=== PATIENT | female | born 1935 | race Caucasian/White ===

== ENCOUNTER → 2021-10-28 17:37 | Outpatient (CLI) | payer MEDICARE, MEDICAID, SELFPAY ==
[2021-10-28 18:26] LABS: Basophils % 0.4 % (0.1-2.0); Eosinophils # 0.2 K/mm3 (0.0-0.4); Eosinophils % 1.5 % (0.1-12.0); Hematocrit 27.1 % (37.0-47.0); Hemoglobin 8.2 g/dL (12.2-16.2); Lymphocytes # 0.7 K/mm3 (0.7-4.5); Lymphocytes % 6.8 % (10-50); Mean Corpuscular HGB Conc 30.3 g/dL (31.8-35.4); Mean Corpuscular Hemoglobin 32.5 pg (27.0-31.2); Mean Corpuscular Volume 107.1 fl (81-99); Mean Platelet Volume 9.8 fl (7.4-10.4); Monocytes # 0.9 K/mm3 (0.1-1.0); Monocytes % 8.2 % (1.7-9.3); Neutrophils # 9.1 K/mm3 (1.8-7.8); Neutrophils % 83.1 % (37.0-80.0); Platelet Count 228 K/mm3 (142-424); Red Blood Count 2.53 M/mm3 (4.20-5.40); Red Cell Distribution Width 16.7 % (11.5-17.5); White Blood Count 10.9 K/mm3 (4.8-10.8)
== END ==
PROVIDERS: Visit Provider Nurse Practitioner Family
DX: D64.9 Anemia, unspecified (principal)
CPT/HCPCS: 85025

== ENCOUNTER 2021-10-31 21:31 | Inpatient (IN) | payer MEDICARE, MEDICAID, SELFPAY ==
[2021-10-31 21:31] VITALS: BP 134/79; PULSE 78; RESP 16; TEMP 36.9; O2SAT 96; BMI 35.2
[2021-10-31 21:49] VITALS: BMI 35.2
--- NOTE | 2021-10-31 21:49 | XR_ITS ---
PROCEDURE INFORMATION: Exam: XR Chest Exam date and time: 10/31/2021 9:49 PM Age: 86 years old Clinical indication: Shortness of breath and other: Covid; Additional info: Covid SOB TECHNIQUE: Imaging protocol: XR of the chest. Views: 1 view. COMPARISON: CR AAS XR acute abdomen series 11/06/2018 10:10 AM FINDINGS: Lungs: Diffuse patchy airspace opacities noted throughout the lungs bilaterally. Commonly reported imaging features of COVID-19 pneumonia are present. Pleural spaces: There is no evidence of pneumothorax. There are no pleural effusions present. Heart/Mediastinum: Heart demonstrates mild diffuse enlargement. Vasculature: The vasculature demonstrates diffuse moderate atherosclerotic calcification. Diaphragm: There is nonspecific elevation of the right hemidiaphragm. Bones/joints: The thoracic spine demonstrates mild degenerative changes at multiple levels. IMPRESSION: 1. Diffuse patchy airspace opacities noted throughout the lungs bilaterally. 2. Commonly reported imaging features of COVID-19 pneumonia are present. Other processes such as influenza pneumonia and organizing pneumonia, as can be seen with drug toxicity and connective tissue disease, can cause a similar imaging pattern. (Reference: Az) 3. Mild cardiomegaly. REFERENCES: Az Montano et al., Radiological Society of [place] Expert Consensus Statement on Reporting Chest CT Findings Related to COVID-19. Endorsed by the Society of Thoracic Radiology, the [place] [employer] [place] [employer], and RSNA. Published December 27, 2019.
[2021-10-31 22:01] VITALS: BP 149/58; PULSE 74; O2SAT 94
[2021-10-31 22:27] LABS: Basophils # 0.1 K/mm3 (0-0.2); Eosinophils % 0.6 % (0.1-12.0); Hematocrit 29.8 % (37.0-47.0); Lymphocytes # 0.9 K/mm3 (0.7-4.5); Lymphocytes % 12.4 % (10-50); Mean Corpuscular HGB Conc 30.1 g/dL (31.8-35.4); Mean Corpuscular Hemoglobin 31.9 pg (27.0-31.2); Mean Corpuscular Volume 105.8 fl (81-99); Mean Platelet Volume 9.1 fl (7.4-10.4); Monocytes # 0.4 K/mm3 (0.1-1.0); Monocytes % 4.9 % (1.7-9.3); Neutrophils % 81.1 % (37.0-80.0); Platelet Count 184 K/mm3 (142-424); Red Blood Count 2.81 M/mm3 (4.20-5.40); Red Cell Distribution Width 16.7 % (11.5-17.5); White Blood Count 7.4 K/mm3 (4.8-10.8)
[2021-10-31 22:36] VITALS: BP 141/53; PULSE 72; O2SAT 93
[2021-10-31 22:39] LABS: Alanine Aminotransferase 40 U/L (12-78); Alkaline Phosphatase 90 U/L (38-126); Anion Gap 9.5 mEq/L (5-15); Aspartate Amino Transferase 72 U/L (14-36); Bilirubin,Total 0.6 mg/dl (0.2-1.3); Blood Urea Nitrogen 43 mg/dl (7-17); Carbon Dioxide 30 mmol/L (22.0-30.0); Chloride 104 mmol/L (98-107); Creatinine Clearance Estimated 42 mL/min (50-200); Estimated Glomerular Filt Rate 39 ml/min (>60); GFR (African American) 47 ML/MIN (>60); Globulin 2.9 g/dL (1.3-3.2); Glucose 117 mg/dl (74-100); Potassium 3.5 mmoL/L (3.5-5.1); Sodium 140 mmol/L (136-145); Total Protein,Serum 5.9 g/dl (6.3-8.2)
--- NOTE | 2021-10-31 22:43 | ECG_ITS ---
APPROVED REPORT Exam: Resting ECG HR:77 bpm ECG Measurements Heart Rate 77 AXES NV 244 P 79 QRSd 103 QRS 19 QT 382 T 136 QTc 414 Conclusion SINUS RHYTHM WITH FIRST DEGREE AV BLOCK LOW QRS VOLTAGE IN EXTREMITY LEADS [QRS DEFLECTION < 0.5 mV IN LIMB LEADS] POSSIBLE ANTERIOR MYOCARDIAL INFARCTION , PROBABLY OLD [30 ms Q WAVE IN V3/V4, OR R < 0.2 mV IN V4] ABNORMAL ECG UNCONFIRMED REPORT Electronically signed by : Donavon Herring MD 11/03/2021 17:29:54
[2021-10-31 22:44] LABS: C-Reactive Protein 90.9 mg/L (0-4)
[2021-10-31 22:49] LABS: Erythrocyte Sedimentation Rate > 140 mm/hr (0-30)
[2021-10-31 22:53] LABS: Troponin I 0.17 ng/ml (0.00-0.034)
[2021-10-31 22:58] LABS: Procalcitonin 0.128 ng/mL (0.0-2.0)
[2021-10-31 23:00] VITALS: BP 147/59; PULSE 68; RESP 22; O2SAT 95
--- NOTE | 2021-10-31 23:16 | HMH.EDSOB ---
ED Disposition Clinical Impression: Non-ST elevated myocardial infarction (non-STEMI), COVID-19, Obesity (BMI 30-39.9), Renal insufficiency Congestive cardiac failure Qualifiers: Heart failure type: unspecified Heart failure chronicity: acute on chronic Qualified Code(s): I50.9 - Heart failure, unspecified Anemia Qualifiers: Anemia type: unspecified type Qualified Code(s): D64.9 - Anemia, unspecified Disposition: Admitted As Inpatient Condition on Discharge: Fair Referrals: Provider,Referral, [Referring] - - Critical Care Critical Care Time: No Attestation: On 10/31/21, the high probability of a clinically significant, sudden or life threatening deterioration of the following system(s) required my full and direct attention, intervention and personal management. The time I documented below is in addition to time spent performing reported procedures but includes the following listed in this critical care notation. Medical Decision Making - Medical Records Medical records reviewed: Yes: I reviewed the patient's medical records. - Nate Inquiry Pt receiving controlled substance: No Vital Signs: 10/31/21 21:31 Temperature 98.4 F Temperature Source Oral Pulse Rate [Left] 78 Respiratory Rate 16 Blood Pressure [Right Arm] 134/79 Blood Pressure Mean [Right Arm] 97 02 Sat by Pulse Oximetry 96 Oxygen Delivery Method Simple Mask - Lab Data Lab results reviewed: Yes: I reviewed the patient's lab results. Lab Results 10/31/21 22:15: WBC 7.4, RBC 2.81 L, Hgb 9.0 L, Hct 29.8 L, MCV 105.8 H, MCH 31.9 H, MCHC 30.1 L, RDW 16.7, Plt Count 184, MPV 9.1, Neut % (Auto) 81.1 H, Lymph % (Auto) 12.4, [place] % (Auto) 4.9, Eos % (Auto) 0.6, Baso % (Auto) 1.0, Neut # (Auto) 6.0, Lymph # (Auto) 0.9, [place] # (Auto) 0.4, Eos # (Auto) 0.0, Baso # (Auto) 0.1, ESR > 140 H 10/31/21 22:15: Sodium 140, Potassium 3.5, Chloride 104, Carbon Dioxide 30, Anion Gap 9.5, BUN 43 H, Creatinine 1.30 H, Estimated Creat Clear 42, Estimated GFR 39 L, Est GFR ( Amer) 47 L, Glucose 117 H, Calcium 8.0 L, Total Bilirubin 0.6, AST 72 H, ALT 40, Alkaline Phosphatase 90, Troponin I 0.17 H, C-Reactive Protein 90.9 H, Total Protein 5.9 L, Albumin 3.0 L, Globulin 2.9, Albumin/Globulin Ratio 1.0 L, Procalcitonin 0.128 10/31/21 22:15: NT-Pro-B Natriuret Pep 7200 H 10/31/21 23:20: Specimen Source Left radial, O2 % 3lpm, ABG pH 7.40, ABG pCO2 39.2, ABG pO2 52.9 L, ABG HCO3 23.8, ABG Total CO2 25.0, ABG O2 Saturation 85 L*, ABG Base Excess -1.0, Barry Test Patient unable 11/01/21 00:11: Urine Color Yellow, Urine Appearance Clear, Urine pH 5.5, Ur Specific [place] 1.020, Urine Protein 1+, Urine Glucose (UA) Negative, Urine Ketones Negative, Urine Blood Trace-l, Urine Nitrate Negative, Urine Bilirubin Negative, Urine Urobilinogen 0.2, Ur Leukocyte Esterase Negative, Urine RBC Occasional, Urine WBC 5-10, Ur Squamous Epith Cells Occasional, Urine Bacteria Trace, Urine Yeast 3+ 11/01/21 01:08: Troponin I 0.16 H Result diagrams: 10/31/21 22:15 10/31/21 22:15 Orders (Tests/Meds): ED MEDICATIONS Generic Name Dose Route Start Last Admin Trade Name Freq PRN Reason Stop Dose Admin Sodium Chloride 1,000 mls @ 999 mls/hr 10/31/21 22:45 10/31/21 22:58 Sod Chlor 0.9% 1000ml Bag IV 10/31/21 23:45 999 mls/hr .Q1H1M SAMUEL Administration Discontinued Medications Generic Name Dose Route Start Last Admin Trade Name Freq PRN Reason Stop Dose Admin Dexamethasone Sodium Phosphate 10 mg 10/31/21 22:38 10/31/21 22:57 Dexamethasone 4mg/Ml 5ml Mdv IV 10/31/21 22:39 10 mg ONCE ONE Administration Furosemide 40 mg 11/01/21 00:16 11/01/21 00:17 Furosemide 40mg/4ml Vial IV 11/01/21 00:17 40 mg ONCE ONE Administration ORDERS Category Date Time Status Troponin I Q3H Lab 11/01/21 04:00 Ordered - Radiology Data #1 Image(s): Chest Image Reviewed: Yes I have reviewed radiologist's interpretation Preliminary Findings: Abnormal -
[2021-10-31 23:24] LABS: NT Pro Brain Natriuretic Pep. 7200 pg/mL (0-450)
[2021-10-31 23:31] VITALS: BP 140/58; PULSE 70; RESP 22; O2SAT 94
[2021-10-31 23:37] LABS: ABG HCO3 23.8 mmhg (22.0-26.0); ABG Oxygen Saturation 85 % (90-100); ABG PCO2 39.2 mmhg (35.0-45.0); ABG PO2 52.9 mmhg (80-100)
[2021-10-31 23:40] LABS: Allen's Test Patient Unable; Oxygen 3LPM %; Source Left Radial
[2021-11-01] VITALS (14 sets, daily range): BP systolic 121–147; BP diastolic 51–71; PULSE 55–86; RESP 16–24; TEMP 36.3–37.1; O2SAT 92–96; BMI 33.0
[2021-11-01 00:20] LABS: Microscopic, Urine URINE MICROSCOPIC (MICROSCOPIC)
[2021-11-01 00:22] LABS: Appearance,Urine CLEAR (Clear); Bilirubin,Urine Negative (Negative); Blood, Urine TRACE-L (Negative); Color,Urine YELLOW (Yellow); Glucose,Urine (UA) Negative (Negative); Ketones,Urine Negative (Negative); Leukocyte Esterase,Urine Negative (Negative); Nitrate,Urine Negative (Negative); PH,Urine 5.5 (5.0-8.5); Protein,Urine 1+ (Negative); Urobilinogen,Urine 0.2 EU/dl (0.2)
[2021-11-01 00:29] LABS: RBC,Urine Occasional #/hpf (0-3)
[2021-11-01 00:30] LABS: Bacteria,Urine Trace /lpf; Squamous Epithelial Cell,Urine Occasional #/hpf (0-5); Yeast,Urine 3+ /lpf
[2021-11-01 01:34] LABS: Troponin I 0.16 ng/ml (0.00-0.034)
--- NOTE | 2021-11-01 01:53 | PC.NURSE ---
kevin from [facility] called to check pt status. informed her of status.
--- NOTE | 2021-11-01 02:01 | PC.NURSE ---
paged dr euceda @ this time
--- NOTE | 2021-11-01 02:07 | PC.NURSE ---
shailesh on phone with Dr euceda @ this time
--- NOTE | 2021-11-01 02:25 | PC.NURSE ---
Spoke to Clifton PUENTES @ [facility] to notified that pt is going to be admitted
[2021-11-01 02:46] LABS: Coronavirus 19, PCR Detected (NotDetected); Influenza A, PCR Not Detected (NotDetected); Influenza B, PCR Not Detected (NotDetected)
--- NOTE | 2021-11-01 03:14 | PC.NURSE ---
patient up to floor via stretcher @this time.
[2021-11-01 04:29] LABS: Basophils % 0.7 % (0.1-2.0); Eosinophils % 0.6 % (0.1-12.0); Hemoglobin 8.3 g/dL (12.2-16.2); Lymphocytes # 0.4 K/mm3 (0.7-4.5); Lymphocytes % 6.9 % (10-50); Mean Corpuscular HGB Conc 30.6 g/dL (31.8-35.4); Mean Corpuscular Hemoglobin 32.2 pg (27.0-31.2); Mean Corpuscular Volume 105.1 fl (81-99); Mean Platelet Volume 9.1 fl (7.4-10.4); Monocytes # 0.2 K/mm3 (0.1-1.0); Neutrophils # 5.6 K/mm3 (1.8-7.8); Neutrophils % 88.9 % (37.0-80.0); Platelet Count 150 K/mm3 (142-424); Red Blood Count 2.59 M/mm3 (4.20-5.40); Red Cell Distribution Width 16.8 % (11.5-17.5); White Blood Count 6.2 K/mm3 (4.8-10.8)
[2021-11-01 04:30] LABS: Hematocrit 27.2 % (37.0-47.0)
[2021-11-01 04:31] LABS: MANUAL DIFFERENTIAL MANUAL DIFFERENTIAL (MANUAL DIFF)
[2021-11-01 04:36] LABS: Chloride 108 mmol/L (98-107); Potassium 3.5 mmoL/L (3.5-5.1); Sodium 139 mmol/L (136-145)
[2021-11-01 04:39] LABS: Anion Gap 7.5 mEq/L (5-15); Blood Urea Nitrogen 41 mg/dl (7-17); Calcium 7.2 mg/dl (8.4-10.2); Carbon Dioxide 27 mmol/L (22.0-30.0); Estimated Glomerular Filt Rate 47 ml/min (>60); GFR (African American) 57 ML/MIN (>60); Glucose 114 mg/dl (74-100)
[2021-11-01 04:41] LABS: Eosinophils % 1 % (0-3); Lymphocytes % 8 % (10-50); Monocytes % 2 % (2-9); Neutrophils % 80 % (42-76); Total Cells Counted 100
[2021-11-01 04:42] LABS: Anisocytosis 1+; Hypochromasia 2+; Macrocytosis 2+; Platelet Estimate Normal; Rouleaux 2+
[2021-11-01 04:54] LABS: Creatinine Clearance Estimated 46 mL/min (50-200); Troponin I 0.15 ng/ml (0.00-0.034)
[2021-11-01 06:21] LABS: POC Glucose,Bedside 119 (70-110)
--- NOTE | 2021-11-01 09:54 | HMH.PHAINT ---
verified pt home meds with list from shelter
--- NOTE | 2021-11-01 10:22 | HMH.HP ---
*Admission Date: 11/01/21 *Chief complaint: Hypoxemia *History of present illness: Ms. Keen is an 86-year-old white female who was recently admitted to [facility] from [facility] for rehab following a stroke. She has a history of paroxysmal atrial fibrillation, hypertension, hyperlipidemia, type 2 diabetes mellitus, and atherosclerotic coronary vascular disease. Four days ago she was diagnosed with Covid at [facility] and had been doing fairly well with supplemental oxygen and conservative treatment until last evening when she was found to be more lethargic and hypoxemic. The staff at [facility] was having difficulty maintaining adequate O2 saturation and she was therefore transferred to the emergency room for further evaluation. In the emergency room, her chest x-ray showed diffuse bilateral infiltrates consistent with Covid pneumonia. Her white count was normal. She was also noted to have elevated troponins and subsequently admitted for further evaluation and treatment. Per [facility] documentation, she is known to be DNR status. [facility] History Medical History: Reports:: Atherosclerotic Heart Disease, Atrial Fibrillation (paroxysmal), Carotid Stenosis, Congestive Heart Failure (Diastolic heart failure), Diabetes Mellitus Type 2, Heart Murmur, Home Oxygen, Hyperlipidemia, Hypertension, Renal Insufficiency (Chronic) Denies:: Cancer, Diabetes Mellitus Type 1, Internal Pacemaker, Lung Disease, MRSA, Seizures *Have you ever received a pneumonia vaccine?: Yes *Have you received a flu vaccine this season?: Yes Other Medical History: Reports: Anemia, Arthritis, Hypothyroidism, Other (Presbycusis, blind in right eye) Other Surgeries: Yes: Cardiac Catheterization, Coronary Stent (Multiple), Other (Hysterectomy). No: Pacemaker Amputation: No - *Social History Smoking Status: Never smoker Alcohol Intake: never Substance Use Type: denies use *Occupational Status:: retired Housing: group home *Travel in the last 8 weeks: None Family Hx:: Unable to obtain Review of Systems - Review of Systems Review of systems:: unable to obtain (She is lethargic and quite hard of hearing) - *Neurologic Denies seizure-like activity Meds Home Medications Medication Instructions Recorded Confirmed Type Insulin Detemir [Levemir 20 unit SQ HS 11/06/18 11/01/21 History 100units/mL 3mL flexpen] Levothyroxine Sodium 100 mcg PO DAILY 11/06/18 11/01/21 History [Levothyroxine 100mcg (0.1MG) Tab] Omeprazole [Omeprazole 20mg 20 mg PO DAILY 11/06/18 11/01/21 History Capsule] PARoxetine HCL [Paxil] 10 mg PO DAILY 11/06/18 11/01/21 History Sucralfate [Sucralfate 1gm 1 gm PO ACHS 11/06/18 11/01/21 History Tab] Apixaban [Eliquis] 2.5 mg PO BID 05/29/19 11/01/21 History Acetaminophen [Acetaminophen 325mg 325 mg PO Q4-6H PRN 11/01/21 11/01/21 History tab] Albuterol Sulfate [Proair Hfa] 2 puffs IH Q4HP PRN 11/01/21 11/01/21 History Amlodipine Besylate [Amlodipine 10 mg PO DAILY 11/01/21 11/01/21 History 10mg Tab] Ascorbic Acid/Ascorbate Sodium 500 mg PO DAILY 11/01/21 11/01/21 History [Vitamin C 500 mg Tablet Chew] Aspirin [Aspirin 81mg chewable 81 mg PO DAILY 11/01/21 11/01/21 History tab] Atorvastatin Calcium [Lipitor 80mg 80 mg PO DAILY 11/01/21 11/01/21 History Tab] Bumetanide 1 mg PO BID 11/01/21 11/01/21 History Cholecalciferol (Vitamin D3) 25 mcg PO DAILY 11/01/21 11/01/21 History [Vitamin D3] Famotidine [Pepcid 20mg Tablet] 20 mg PO DAILY 11/01/21 11/01/21 History Ferrous Sulfate 325 mg PO BID 11/01/21 11/01/21 History Insulin Lispro [Humalog Kwikpen 0 units SQ TID 11/01/21 11/01/21 History U-100] Ipratropium/Albuterol Sulfate 1 puff IH QID 11/01/21 11/01/21 History [Combivent Respimat Inh] Isosorbide Mononitrate [Imdur 60mg 60 mg PO DAILY 11/01/21 11/01/21 History ER tablet] Nystatin [Nystatin Cr 100,000 1 applicatio TOPICAL BID 11/01/21 11/01/21 History Units/GM
--- NOTE | 2021-11-01 14:31 | HMH.PHAVTE ---
[facility] Pharmacy VTE Monitoring - Patient Demographics Admission date: 11/01/21 Report Date: 11/01/21 Time: 14:31 Allergies/Adverse Reactions: Patient Allergies promethazine [From Phenergan] Allergy (Verified 11/06/18 09:50) Height: 1.52 m Weight: 76.249 kg Patient Problems: Current Active Problems Congestive cardiac failure (Acute) Anemia (Acute) Non-ST elevated myocardial infarction (non-STEMI) (Acute) COVID-19 (Acute) Obesity (BMI 30-39.9) (Acute) Renal insufficiency (Acute) Pneumonia due to COVID-19 virus (Acute) Recent cerebrovascular accident (CVA) (Acute) Presbycusis (Acute) Hypothyroid (Acute) Hypertension (Acute) Type 2 diabetes mellitus (Acute) DNR (do not resuscitate) (Acute) - VTE Risk Labs: VTE Related Lab Results Hgb 8.3 g/dL (12.2-16.2) L 11/01/21 04:20 Hct 27.2 % (37.0-47.0) L 11/01/21 04:20 Plt Count 150 K/mm3 (142-424) 11/01/21 04:20 BUN 41 mg/dl (7-17) H 11/01/21 04:20 Creatinine 1.10 mg/dl (0.52-1.04) H 11/01/21 04:20 Estimated Creat Clear 46 mL/min (50-200) 11/01/21 04:20 VTE Score: 7 VTE Risk Level: Moderate Risk - Prophylaxis Types of VTE Prophylaxis: TEDS Knee High, Pharmacological Location of Applied Device: Bilateral Lower Extremeties Pharmacologic Type: Other (ELIQUIS AND DARON HOSE ORDERED)
[2021-11-01 20:20] LABS: POC Glucose,Bedside 187 (70-110)
[2021-11-01 21:31] LABS: POC Glucose,Bedside 112 (70-110)
[2021-11-01 21:32] LABS: POC Glucose,Bedside 279 (70-110)
[2021-11-02] VITALS (16 sets, daily range): BP systolic 118–137; BP diastolic 47–92; PULSE 52–78; RESP 20–24; TEMP 36.1–36.6; O2SAT 86–99; BMI 34.4
--- NOTE | 2021-11-02 05:25 | PC.NURSE ---
Addendum entered by Nessa Wang RN 11/02/21 05:33: temp 96.9 - warm blankets applied, temperature in room increased. Will recheck. Original Note: Pt is still lethargic, awakens at times spontaneously or to voice (very SQUAXIN). Oriented to self. Pt did c/o of soreness in both legs. Pt repositioned and medicated per DEC. After repositioning and medication pt has rested better. Pt started out this shift on 3 L NC, but would stay at 88-89%. Pt does mouth breath at times, O2 titrated to 4 L NC. Pt has been greater than 90% since. EKG obtained during my shift because RN watching tele said it looked like her rhythm was different from earlier. EKG read by ER MD - no acute ischemic changes per Dr. Menendez. Turning q2hrs, voiding per sanchez cath. Sanchez patent, draining yellow urine. IV infusing per order. Call light in reach.
[2021-11-02 06:11] LABS: Basophils % 0.3 % (0.1-2.0); Hemoglobin 8.2 g/dL (12.2-16.2); Lymphocytes # 0.8 K/mm3 (0.7-4.5); Lymphocytes % 10.1 % (10-50); Mean Corpuscular HGB Conc 32.2 g/dL (31.8-35.4); Mean Corpuscular Hemoglobin 33.6 pg (27.0-31.2); Mean Corpuscular Volume 104.1 fl (81-99); Mean Platelet Volume 9.6 fl (7.4-10.4); Monocytes # 0.5 K/mm3 (0.1-1.0); Monocytes % 5.9 % (1.7-9.3); Neutrophils # 6.5 K/mm3 (1.8-7.8); Neutrophils % 83.7 % (37.0-80.0); Platelet Count 156 K/mm3 (142-424); Red Blood Count 2.43 M/mm3 (4.20-5.40); Red Cell Distribution Width 16.9 % (11.5-17.5); White Blood Count 7.7 K/mm3 (4.8-10.8)
[2021-11-02 06:12] LABS: Hematocrit 25.3 % (37.0-47.0)
--- NOTE | 2021-11-02 06:20 | PC.NURSE ---
Upon entering room, pt has audible wheezing. Pt was maintaining O2 sat of 93% on 4L, now hovering 89-90%. Dr. King paged. New orders received for lasix and xopenex tx.
[2021-11-02 06:32] LABS: Anion Gap 9.4 mEq/L (5-15); Blood Urea Nitrogen 47 mg/dl (7-17); Calcium 7.5 mg/dl (8.4-10.2); Carbon Dioxide 28 mmol/L (22.0-30.0); Chloride 109 mmol/L (98-107); Creatinine Clearance Estimated 40 mL/min (50-200); Estimated Glomerular Filt Rate 39 ml/min (>60); GFR (African American) 47 ML/MIN (>60); Glucose 84 mg/dl (74-100); Potassium 3.4 mmoL/L (3.5-5.1); Sodium 143 mmol/L (136-145)
[2021-11-02 06:54] LABS: POC Glucose,Bedside 103 (70-110)
--- NOTE | 2021-11-02 08:51 | XR_ITS ---
PROCEDURE INFORMATION: Exam: XR Chest Exam date and time: 11/02/2021 8:51 AM Age: 86 years old Clinical indication: Shortness of breath; Additional info: F/u pneumonia, covid TECHNIQUE: Imaging protocol: XR of the chest. Views: 1 view. COMPARISON: CR XR CHEST PORTABLE 10/31/2021 9:51 PM FINDINGS: Lungs: Patchy bibasilar airspace opacities, slightly worsened from 10/31/2021. Pleural spaces: Small bilateral pleural effusions, left greater than right, mildly increased in size. No pneumothorax. Heart/Mediastinum: Unremarkable. No cardiomegaly. Bones/joints: Unremarkable. IMPRESSION: Mild interval worsening of bibasilar airspace opacities with slightly increased size of a left pleural effusion.
--- NOTE | 2021-11-02 09:06 | HMH.ACPN2 ---
Internal Medicine - PN: Subj *Date: 11/02/21 *Time: 09:23 Interval history: Increased respiratory distress over night, now requiring NRB mask to maintain sats Exam Vital signs and Labs for Last 24 Hours: Temp Pulse Resp BP Pulse Ox 97.9 F 63 20 118/55 L 97 11/02/21 07:47 11/02/21 08:00 11/02/21 07:47 11/02/21 07:47 11/02/21 07:47 Laboratory Results - last 24 hr 11/01/21 12:41: POC Glucose 279 H 11/01/21 17:15: POC Glucose 187 H 11/01/21 21:17: POC Glucose 112 H 11/02/21 05:35: WBC 7.7, RBC 2.43 L, Hgb 8.2 L, Hct 25.3 L, MCV 104.1 H, MCH 33.6 H, MCHC 32.2, RDW 16.9, Plt Count 156, MPV 9.6, Neut % (Auto) 83.7 H, Lymph % (Auto) 10.1, [place] % (Auto) 5.9, Eos % (Auto) 0.0 L, Baso % (Auto) 0.3, Neut # (Auto) 6.5, Lymph # (Auto) 0.8, [place] # (Auto) 0.5, Eos # (Auto) 0.0, Baso # (Auto) 0.0 11/02/21 05:35: Sodium 143, Potassium 3.4 L, Chloride 109 H, Carbon Dioxide 28, Anion Gap 9.4, BUN 47 H, Creatinine 1.30 H, Estimated Creat Clear 40, Estimated GFR 39 L, Est GFR ( Amer) 47 L, Glucose 84, Calcium 7.5 L 11/02/21 05:46: POC Glucose 103 I & O for Last 24 hours: Intake & Output 10/30/21 10/31/21 11/01/21 11/02/21 11:59 11:59 11:59 11:59 Intake Total 480 / 480 780 / 780 Output Total 1400 / 1400 Balance 480 / 480 -620 / -620 Weight 168 lb 1.604 oz 175 lb 8 oz Narrative: She arouses easily but does not respond to questions; possibly related to poor hearing. She has audible wheezes. Color is good. Chest with bilateral rhonchi and wheezes. Abdomen soft with no apparent tenderness. Extremities with no edema. Assessment and Plan (1) Pneumonia due to COVID-19 virus Status: Acute Category: Medical Code(s): U07.1 - COVID-19; J12.82 - Pneumonia due to coronavirus disease 2019 (2) Recent cerebrovascular accident (CVA) Status: Acute Category: Medical Code(s): Z86.73 - Personal history of transient ischemic attack (TIA), and cerebral infarction without residual deficits (3) Presbycusis Status: Acute Category: Medical Code(s): H91.10 - Presbycusis, unspecified ear (4) Hypothyroid Status: Acute Category: Medical Code(s): E03.9 - Hypothyroidism, unspecified (5) Hypertension Status: Acute Category: Medical Code(s): I10 - Essential (primary) hypertension (6) Type 2 diabetes mellitus Status: Acute Category: Medical Code(s): E11.9 - Type 2 diabetes mellitus without complications (7) Anemia Status: Acute Qualifiers: Anemia type: unspecified type Qualified Code(s): D64.9 - Anemia, unspecified Category: Medical Code(s): D64.9 - Anemia, unspecified (8) Congestive cardiac failure Status: Acute Qualifiers: Heart failure type: unspecified Heart failure chronicity: acute on chronic Qualified Code(s): I50.9 - Heart failure, unspecified Category: Medical Code(s): I50.9 - Heart failure, unspecified (9) Non-ST elevated myocardial infarction (non-STEMI) Status: Acute Category: Medical Code(s): I21.4 - Non-ST elevation (NSTEMI) myocardial infarction (10) Renal insufficiency Status: Acute Category: Medical Code(s): N28.9 - Disorder of kidney and ureter, unspecified - Assessment and plan all Dx Assessment and Plan for all problems:: Repeat CXR. Add Cefepime and steroids. Start scheduled Duonebs. Check echocardiogram. I was able to speak with her daughter, Rhiannon Kamara, this morning to update her condition. We also discussed code status and she clearly indicated that Ms. Keen is to be a FULL CODE.
[2021-11-02 09:21] LABS: Cholesterol 103 mg/dl (140-200); Triglycerides 101 mg/dl (30-150); VLDL Cholesterol 20 mg/dL (0-40)
[2021-11-02 09:22] LABS: HDL Cholesterol 34 mg/dl (40-60)
[2021-11-02 09:32] LABS: Direct LDL Cholesterol 41.13 mg/dL (100-129)
--- NOTE | 2021-11-02 09:40 | PC.NURSE ---
pt unable to follow commands for morning medication administration. morning meds are being held at this time. paged MD to make aware. awaiting call back
--- NOTE | 2021-11-02 10:24 | PC.NURSE ---
pt would not allow for insertion of ng tube.
[2021-11-02 13:13] LABS: POC Glucose,Bedside 108 (70-110)
--- NOTE | 2021-11-02 15:11 | PC.NURSE ---
ng tube placement successful on 2nd attempt. 65 sharla.
--- NOTE | 2021-11-02 15:12 | PC.NURSE ---
ng tube placement successful on 2nd attempt. 65 atn
--- NOTE | 2021-11-02 17:10 | PC.NURSE ---
pt pulled out ng tube. attempted to insert new ng but pt was unable to tolerate. dr euceda made aware.
[2021-11-02 18:42] LABS: POC Glucose,Bedside 152 (70-110)
[2021-11-02 21:40] LABS: POC Glucose,Bedside 144 (70-110)
[2021-11-03] VITALS (27 sets, daily range): BP systolic 61–162; BP diastolic 28–78; PULSE 50–78; RESP 20–24; TEMP 35.4–36.6; O2SAT 90–100; BMI 34.4
--- NOTE | 2021-11-03 08:17 | HMH.ACPN2 ---
<Zahra Jackson - Last Filed: 11/03/21 08:17> Internal Medicine - PN: Subj *Date: 11/03/21 *Time: 08:18 Interval history: Patient responds when you yell letter. She indicates that she does not hurt and is not short of breath. She remains on a nonrebreather breather with O2 sats 90 to 95%. Patient was unable to take medicines yesterday. NG tube was inserted and pulled out by patient. She really did not want it to begin with. Protonix changed to IV and Nitropaste utilized instead of isosorbide. Repeat chest x-ray 11/02/2021: IMPRESSION: Mild interval worsening of bibasilar airspace opacities with slightly increased size of a left pleural effusion. Exam Vital signs and Labs for Last 24 Hours: Temp Pulse Resp BP Pulse Ox 96.0 F L 75 20 141/69 H 95 11/03/21 04:00 11/03/21 06:05 11/03/21 04:00 11/03/21 04:00 11/03/21 06:05 Laboratory Results - last 24 hr 11/02/21 05:35: Triglycerides 101, Cholesterol 103 L, LDL Cholesterol Direct 41.13 L, VLDL Cholesterol 20, HDL Cholesterol 34 L, Cholesterol/HDL Ratio 3.0 11/02/21 11:52: POC Glucose 108 11/02/21 16:46: POC Glucose 152 H 11/02/21 20:10: POC Glucose 144 H I & O for Last 24 hours: Intake & Output 10/31/21 11/01/21 11/02/21 11/03/21 11:59 11:59 11:59 11:59 Intake Total 480 / 480 780 / 780 Output Total 1400 / 1400 1350 / 1350 Balance 480 / 480 -620 / -620 -1350 / -1350 Weight 168 lb 1.604 oz 175 lb 8 oz 175 lb 4.28 oz Microbiology Reports for the Last 24 Hours: Microbiology 11/02/21 14:05 Sputum - Expectorated Sputum Gram Stain - Final - Constitutional no acute distress, obese Comments: Awakens with yelling at her. - *Routine Respiratory Exam Present: wheezes (Bilaterally), crackles (Bilateral) - *Routine Cardiovascular Exam Present: RRR - *Routine Abdominal Exam Present: soft, normoactive bowel sounds, obese. Absent: tenderness - *Routine Extremities Exam Absent: edema - *Routine Neurological Exam Present: alert Tries to answer all questions Assessment and Plan (1) Pneumonia due to COVID-19 virus Status: Acute Category: Medical Code(s): U07.1 - COVID-19; J12.82 - Pneumonia due to coronavirus disease 2019 (2) Recent cerebrovascular accident (CVA) Status: Acute Category: Medical Code(s): Z86.73 - Personal history of transient ischemic attack (TIA), and cerebral infarction without residual deficits (3) Presbycusis Status: Acute Category: Medical Code(s): H91.10 - Presbycusis, unspecified ear (4) Hypothyroid Status: Acute Category: Medical Code(s): E03.9 - Hypothyroidism, unspecified (5) Hypertension Status: Acute Category: Medical Code(s): I10 - Essential (primary) hypertension (6) Type 2 diabetes mellitus Status: Acute Category: Medical Code(s): E11.9 - Type 2 diabetes mellitus without complications (7) Anemia Status: Acute Qualifiers: Anemia type: unspecified type Qualified Code(s): D64.9 - Anemia, unspecified Category: Medical Code(s): D64.9 - Anemia, unspecified (8) Congestive cardiac failure Status: Acute Qualifiers: Heart failure type: unspecified Heart failure chronicity: acute on chronic Qualified Code(s): I50.9 - Heart failure, unspecified Category: Medical Code(s): I50.9 - Heart failure, unspecified (9) Non-ST elevated myocardial infarction (non-STEMI) Status: Acute Category: Medical Code(s): I21.4 - Non-ST elevation (NSTEMI) myocardial infarction (10) Renal insufficiency Status: Acute Category: Medical Code(s): N28.9 - Disorder of kidney and ureter, unspecified - Assessment and plan all Dx Assessment and Plan for all problems:: We will continue with Covid protocol. We will repeat labs in the a.m. We will obtain an echo today. <Sumeet Jauregui - Last Filed: 11/03/21 17:46> Internal Medicine - PN: Subj *Date: 11/03/21 *Time: 17:45 Exam Vital signs and Labs for Last 24 [place]
--- NOTE | 2021-11-03 08:21 | CA_ITS ---
APPROVED REPORT EXAM: Comprehensive 2D, Doppler, and color-flow Echocardiogram Small Brake Form Operator: Joselin Lira RVT Ht: 4 ft 11 in Wt: 175lbs BSA: 1.74 BP: 118/55 mmHg Indications: COVID PNEUMONIA,ELEVATED TROP,NSTEMI,HTN,DM,HLD,MURMUR,A-FIB,SOA TDS 2D Dimensions LVOT 2.21 cm (M/F) 1.5-2.5 LA Volume 92.90 mL LA Volume Index 53.39 mL/m2 (M/F) 16-34 M-Mode Dimensions RVDd 2.81 cm (0.9-2.6) LA Diam 4.52 cm (1.9-4.0) LVDd 4.04 cm (3.5-5.7) Ao Diam 2.88 cm (2.0-3.7) LVDs 2.32 cm (3.5-5.7) IVSd 1.20 cm (0.6-1.1) PWd 0.71 cm (0.6-1.1) EF (Teich) 74.20% FS 42.60% EDV (Teich) 71.70 mL TAPSE 2.08 (<1.7) ESV (Teich) 18.50 mL LV Diastology E Decel Time 160.00 (160-240 msec) E/A Ratio 1.5 MED E' 5.90 (< 7 cm/sec) E'/MED E' Ratio 22.17 (>14) LAT E' 9.10 (<10 cm/sec) E/LAT E' Ratio 14.37 (>14) Aortic Valve AI PHT 940.00 ms Mitral Valve MV E Max Sloan. 131.00 (40-130 cm/s) MV A Velocity 87.00 (40-130 cm/s) E/A Ratio 1.50 MV Decel. Time 160.00 (160-240 ms) MV PHT 47.00 ms Pulmonary Valve PV Peak Velocity 60.00 (50-150 cm/s) Tricuspid Valve TR P. Velocity 401.00 cm/s RAP Estimate 10.00 mmHg RVSP 74.40 mmHg Left Ventricle Left atrium is moderately enlarged, left ventricle is normal size, mild concentric left ventricular hypertrophy, visually estimated ejection fraction 55% with no regional wall motion abnormality, diastolic parameters are inconclusive. Right Ventricle Right atrium is moderately enlarged, right ventricle is mildly dilated with normal contractility. Aortic Valve Aortic valve is thickened and calcified without Doppler evidence of aortic stenosis, there is mild aortic insufficiency. Mitral Valve Mitral valve has mitral annular calcification which extends in both anterior posterior mitral leaflet, there is mild mitral regurgitation. Tricuspid Valve Tricuspid valve leaflets are minimally thickened, there is no tricuspid stenosis, there is mild tricuspid regurgitation, calculated right ventricular systolic pressure is 50 mmHg. Pulmonic Valve Pulmonic valve is poorly visualized. Great Vessels Aortic root is normal size. Inferior vena cava is poorly visualized. Pericardium No significant pericardial effusion noted. Conclusion 1. Biatrial enlargement, normal left ventricular size, mild concentric left ventricular hypertrophy, visually estimated ejection fraction 55% with no regional wall motion abnormality, diastolic parameters are inconclusive. 2. Mildly enlarged right ventricle with normal contractility. 3. Thickened and calcified aortic valve without aortic stenosis, there is mild aortic insufficiency. 4. Mild mitral and tricuspid regurgitation, calculated right ventricular systolic pressure is 50 mmHg. 5. No significant pericardial effusion noted. 6. Inferior vena cava is poorly visualized. Electronically signed by : Anastacio Jackson MD 11/03/2021 21:49:55
[2021-11-03 08:48] LABS: Alanine Aminotransferase 27 U/L (12-78); Albumin Level 2.5 g/dl (3.5-5.0); Alkaline Phosphatase 68 U/L (38-126); Anion Gap 14.1 mEq/L (5-15); Aspartate Amino Transferase 56 U/L (14-36); Bilirubin,Total 0.7 mg/dl (0.2-1.3); Blood Urea Nitrogen 50 mg/dl (7-17); Calcium 7.3 mg/dl (8.4-10.2); Carbon Dioxide 21 mmol/L (22.0-30.0); Chloride 111 mmol/L (98-107); Creatinine Clearance Estimated 48 mL/min (50-200); Estimated Glomerular Filt Rate 47 ml/min (>60); GFR (African American) 57 ML/MIN (>60); Globulin 2.4 g/dL (1.3-3.2); Glucose 153 mg/dl (74-100); Potassium 4.1 mmoL/L (3.5-5.1); Sodium 142 mmol/L (136-145); Total Protein,Serum 4.9 g/dl (6.3-8.2)
--- NOTE | 2021-11-03 09:48 | SW/DCPLANNER ---
This patient currently resides at [facility]: per [facility]/ [facility] patient is SNF level of care. Updated patient information has been faxed to [facility]. Discharge date is unknown at this time.
[2021-11-03 09:57] LABS: POC Glucose,Bedside 156 (70-110)
[2021-11-03 11:29] LABS: POC Glucose,Bedside 220 (70-110)
--- NOTE | 2021-11-03 11:35 | PC.NURSE ---
RESP CARE NOTE; Pt intubated during Code Blue and placed on a ventilator.
--- NOTE | 2021-11-03 11:48 | DIET.NUTRFU ---
RD notified of possible swallowing issues, NG tube pulled out and does not want one. Spoke to nursing today and she tolerated pills in applesauce with no issues. Nursing did report poor po intake, supplements in place
--- NOTE | 2021-11-03 12:02 | XR_ITS ---
FINAL REPORT CLINICAL HISTORY: . intubation FINDINGS: SINGLE VIEW CHEST. Artifact overlies the mid chest. An ET tube is present with the tip approximately 14 mm into the right mainstem bronchus. The heart is normal in size. The mediastinum is unremarkable. There are bilateral pulmonary opacities which may represent pneumonia or edema. There is no pneumothorax. IMPRESSION: ET tube present with tip approximately 14 mm in to the right mainstem bronchus. Bilateral pulmonary opacities, may represent pneumonia or edema. ET tube tip location reported to the patient's nurse, Trudi Reveles at the time of interpretation. Reviewed, Interpreted and Dictated by Rigoberto Guajardo III, MD Transcribed by Kira An Authenticated by Rigoberto Guajardo III, MD on 11/03/2021 01:08:53 PM [facility]
--- NOTE | 2021-11-03 13:08 | P.PCN_ITS ---
[facility] Procedure Note Procedure Note:: called to pt room for lost pulse, cpr in progress on arrival, mult rounds of epi/ACLS for PEA intubated by me with 7-0 et tube direct viz confirmed with jeremias bs's ausc pulse regained stable vitals, admitting provider consulted, returned to ED
--- NOTE | 2021-11-03 13:11 | HMH.CONS ---
*Admission Date: 11/01/21 *Reason for consult:: code note from floor *History of present illness: called to pt room for second time for lost pulse, ACLS followed, tube check ok, pulse regained discussed with neice/daughter by phone wishes to not resume cpr/code if pulse lost again retuned to ED [facility] History Medical History: Reports:: Atherosclerotic Heart Disease, Atrial Fibrillation (paroxysmal), Carotid Stenosis, Congestive Heart Failure (Diastolic heart failure), Diabetes Mellitus Type 2, Heart Murmur, Home Oxygen, Hyperlipidemia, Hypertension, Renal Insufficiency (Chronic), Valvular Heart Disease Denies:: Cancer, Diabetes Mellitus Type 1, Internal Pacemaker, Lung Disease, MRSA, Seizures *Have you ever received a pneumonia vaccine?: Yes *Have you received a flu vaccine this season?: Yes Other Medical History: Reports: Anemia, Arthritis, Hypothyroidism, Other (Presbycusis, blind in right eye) Other Surgeries: Yes: Cardiac Catheterization, Coronary Stent (Multiple), Other (Hysterectomy). No: Pacemaker Amputation: No - *Social History Smoking Status: Never smoker Alcohol Intake: never Substance Use Type: denies use *Occupational Status:: retired Housing: custodial *Travel in the last 8 weeks: None Family Hx:: Unable to obtain Review of Systems - *Neurologic Denies seizure-like activity Meds Home Medications Medication Instructions Recorded Confirmed Type Insulin Detemir [Levemir 20 unit SQ HS 11/06/18 11/01/21 History 100units/mL 3mL flexpen] Levothyroxine Sodium 100 mcg PO DAILY 11/06/18 11/01/21 History [Levothyroxine 100mcg (0.1MG) Tab] Omeprazole [Omeprazole 20mg 20 mg PO DAILY 11/06/18 11/01/21 History Capsule] PARoxetine HCL [Paxil] 10 mg PO DAILY 11/06/18 11/01/21 History Sucralfate [Sucralfate 1gm 1 gm PO ACHS 11/06/18 11/01/21 History Tab] Apixaban [Eliquis] 2.5 mg PO BID 05/29/19 11/01/21 History Acetaminophen [Acetaminophen 325mg 325 mg PO Q4-6H PRN 11/01/21 11/01/21 History tab] Albuterol Sulfate [Proair Hfa] 2 puffs IH Q4HP PRN 11/01/21 11/01/21 History Amlodipine Besylate [Amlodipine 10 mg PO DAILY 11/01/21 11/01/21 History 10mg Tab] Ascorbic Acid/Ascorbate Sodium 500 mg PO DAILY 11/01/21 11/01/21 History [Vitamin C 500 mg Tablet Chew] Aspirin [Aspirin 81mg chewable 81 mg PO DAILY 11/01/21 11/01/21 History tab] Atorvastatin Calcium [Lipitor 80mg 80 mg PO DAILY 11/01/21 11/01/21 History Tab] Bumetanide 1 mg PO BID 11/01/21 11/01/21 History Cholecalciferol (Vitamin D3) 25 mcg PO DAILY 11/01/21 11/01/21 History [Vitamin D3] Famotidine [Pepcid 20mg Tablet] 20 mg PO DAILY 11/01/21 11/01/21 History Ferrous Sulfate 325 mg PO BID 11/01/21 11/01/21 History Insulin Lispro [Humalog Kwikpen 0 units SQ TID 11/01/21 11/01/21 History U-100] Ipratropium/Albuterol Sulfate 1 puff IH QID 11/01/21 11/01/21 History [Combivent Respimat Inh] Isosorbide Mononitrate [Imdur 60mg 60 mg PO DAILY 11/01/21 11/01/21 History ER tablet] Nystatin [Nystatin Cr 100,000 1 applicatio TOPICAL BID 11/01/21 11/01/21 History Units/GM 30GM] Ondansetron [Ondansetron Odt 8mg 1 tab PO Q8 PRN 11/01/21 11/01/21 History Tab] Zinc Sulfate [Zinc Sulfate 220mg 220 mg PO DAILY 11/01/21 11/01/21 History capsule] carvediloL [Carvedilol 25mg Tab] 25 mg PO BID 11/01/21 11/01/21 History cefUROXime axetiL [Ceftin 500mg 500 mg PO BID 11/01/21 11/01/21 History Tab (GEQ)] guaiFENesin [Mucinex 600mg tablet] 600 mg PO BID 11/01/21 11/01/21 History Allergies Allergy/AdvReac Type Severity Reaction Status Date / Time promethazine [From Phenergan] Allergy Verified 11/06/18 09:50 Exam Vital signs and Labs for Last 24 Hours: Temp Pulse Resp BP Pulse Ox 97.8 F 77 22 111/78 99 11/03/21 08:00 11/03/21 08:00 11/03/21 08:00 11/03/21 08:00 11/03/21 08:00 Laboratory Results - last 24 hr 11/02/21 11:52: POC Glucose 108 11/02/21 16:46:
--- NOTE | 2021-11-03 13:52 | DIET.NUTRFU ---
Pt coded and is now intubated. When appropriate, begin TF with Pulmocare at goal rate of 60 ml/hr, providing 2070 kcals, 86 g protein, and 1083 ml free water. Flush with 135 cc q4hr = 810 ml to meet pt's fluid needs. Pt is currently on IVF. Begin flush once IVF has been discontinued. Pt is receiving medications containing NaCl, which is also providing some of her hydration.
--- NOTE | 2021-11-03 13:55 | HMH.PULMCON ---
*Admission Date: 11/01/21 *Reason for consult:: COVID-19 pneumonia *History of present illness: Ms. Keen is a 86-year-old female presented to the hospital for COVID-19 pneumonia, diagnosed 4 days prior to admission has been on supplemental oxygen with conservative management up until prior to admission where patient was found to be in worsening respiratory distress and hypoxic and recently admitted to the hospital for further management patient not symptoms has been gradually escalating initially on 3 to 4 L nasal cannula to nonrebreather mask eventually had a cardiopulmonary arrest this morning eventually needing intubation and mechanical ventilatory support and pulmonary was called for further management [facility] History Medical History: Reports:: Atherosclerotic Heart Disease, Atrial Fibrillation (paroxysmal), Carotid Stenosis, Congestive Heart Failure (Diastolic heart failure), Diabetes Mellitus Type 2, Heart Murmur, Home Oxygen, Hyperlipidemia, Hypertension, Renal Insufficiency (Chronic), Valvular Heart Disease Denies:: Cancer, Diabetes Mellitus Type 1, Internal Pacemaker, Lung Disease, MRSA, Seizures *Have you ever received a pneumonia vaccine?: Yes *Have you received a flu vaccine this season?: Yes Other Medical History: Reports: Anemia, Arthritis, Hypothyroidism, Other (Presbycusis, blind in right eye) Other Surgeries: Yes: Cardiac Catheterization, Coronary Stent (Multiple), Other (Hysterectomy). No: Pacemaker Amputation: No - *Social History Smoking Status: Never smoker Alcohol Intake: never Substance Use Type: denies use *Occupational Status:: retired Housing: half-way *Travel in the last 8 weeks: None Family Hx:: Unable to obtain ROS - Review of Systems Review of systems:: unable to obtain intubated and sedated - Cons Reports fatigue, Reports fever(s), Reports weight loss - ENT Denies change in voice, Denies nasal congestion, Denies nasal discharge, Denies nasal obstruction - Card Reports shortness of breath, Reports shortness of breath with activity - Resp Respiratory: Reports chest congestion, Reports cough, Denies coughing up blood, Denies pain on inspiration, Denies pain with cough, Reports cough with sputum production - GI Gastrointestingal: Denies: abdominal pain - [place] Musculoskeletal: Reports muscle weakness - Psych Denies thoughts of hurting/killing others, Denies thoughts of hurting/killing yourself Meds Home Medications Medication Instructions Recorded Confirmed Type Insulin Detemir [Levemir 20 unit SQ HS 11/06/18 11/01/21 History 100units/mL 3mL flexpen] Levothyroxine Sodium 100 mcg PO DAILY 11/06/18 11/01/21 History [Levothyroxine 100mcg (0.1MG) Tab] Omeprazole [Omeprazole 20mg 20 mg PO DAILY 11/06/18 11/01/21 History Capsule] PARoxetine HCL [Paxil] 10 mg PO DAILY 11/06/18 11/01/21 History Sucralfate [Sucralfate 1gm 1 gm PO ACHS 11/06/18 11/01/21 History Tab] Apixaban [Eliquis] 2.5 mg PO BID 05/29/19 11/01/21 History Acetaminophen [Acetaminophen 325mg 325 mg PO Q4-6H PRN 11/01/21 11/01/21 History tab] Albuterol Sulfate [Proair Hfa] 2 puffs IH Q4HP PRN 11/01/21 11/01/21 History Amlodipine Besylate [Amlodipine 10 mg PO DAILY 11/01/21 11/01/21 History 10mg Tab] Ascorbic Acid/Ascorbate Sodium 500 mg PO DAILY 11/01/21 11/01/21 History [Vitamin C 500 mg Tablet Chew] Aspirin [Aspirin 81mg chewable 81 mg PO DAILY 11/01/21 11/01/21 History tab] Atorvastatin Calcium [Lipitor 80mg 80 mg PO DAILY 11/01/21 11/01/21 History Tab] Bumetanide 1 mg PO BID 11/01/21 11/01/21 History Cholecalciferol (Vitamin D3) 25 mcg PO DAILY 11/01/21 11/01/21 History [Vitamin D3] Famotidine [Pepcid 20mg Tablet] 20 mg PO DAILY 11/01/21 11/01/21 History Ferrous Sulfate 325 mg PO BID 11/01/21 11/01/21 History Insulin Lispro [Humalog Kwikpen 0 units SQ TID 11/01/21 11/01/21 History U-100] Ipratropium/Albuterol Sulfate 1 puff IH QID 11/01/21 11/01/21 H
[2021-11-03 13:56] LABS: ABG Base Excess -5.8 mmol/L (-2.4-2.3); ABG HCO3 18.6 mmhg (22.0-26.0); ABG Oxygen Saturation 96 % (90-100); ABG PCO2 29.1 mmhg (35.0-45.0); ABG PH 7.42 mmol/L (7.35-7.45); ABG PO2 86.2 mmhg (80-100); ABG TCO2 19.5 mmhg (23-27)
--- NOTE | 2021-11-03 13:58 | XR_ITS ---
FINAL REPORT CLINICAL HISTORY: . INTUBATION COMPARISON: Earlier the same day FINDINGS: The endotracheal tube has been retracted with the tip now terminating at the milka. The heart size is normal. The mediastinum is normal. There are persistent pulmonary opacities. There are no pleural effusions. There is no pneumothorax. There is no osseous abnormality. IMPRESSION: Retraction of the ET tube with the tip now at the milka. Persistent pulmonary opacities could represent pneumonia or edema. Reviewed, Interpreted and Dictated by Rigoberto Guajardo III, MD Transcribed by Dallas Del Rio Authenticated by Rigoberto Guajardo III, MD on 11/03/2021 03:09:[address] [facility]
[2021-11-03 14:03] LABS: Oxygen 100 %; PEEP 5; Tidal Volume 380; Vent Rate 20
[2021-11-03 14:04] LABS: Allen's Test acceptable; Lactate Arterial 2.2 mmol/L (0.4-2.0); Source Right Radial
--- NOTE | 2021-11-03 15:36 | CT_ITS ---
PROCEDURE INFORMATION: Exam: CTA Chest With Contrast Exam date and time: 11/03/2021 3:36 PM Age: 86 years old Clinical indication: Shortness of breath; Patient HX: Intubated, covid; Additional info: Hypoxia TECHNIQUE: Imaging protocol: Computed tomographic angiography of the chest with contrast. 3D rendering (Not supervised by radiologist): MIP and/or 3D reconstructed images were created by the technologist. Radiation optimization: All CT scans at this facility use at least one of these dose optimization techniques: automated exposure control; mA and/or kV adjustment per patient size (includes targeted exams where dose is matched to clinical indication); or iterative reconstruction. Contrast material: ISOVUE 370; Contrast volume: 70 ml; Contrast route: INTRAVENOUS (IV); COMPARISON: CR XR CHEST PORTABLE 11/03/2021 1:51 PM FINDINGS: Tubes, catheters and devices: Endotracheal tube is at the level of the milka. Pulmonary arteries: Normal. No pulmonary emboli. Aorta: The aorta demonstrates mild atherosclerotic calcification. No acute pathology in the aorta. Lungs: Diffuse ground-glass, crazy paving, and dense airspace consolidations seen throughout the lungs with associated air bronchograms. There are extremely dense airspace consolidations seen in the bilateral lower lobes. There is a airspace consolidation which occupies the entirety of the left lower lobe. There is obstruction of the distal left lower lobar bronchus. Remainder of the airways are patent. Pleural spaces: Small to moderately sized bilateral layering pleural effusions. No pneumothorax. Heart: There is severe atherosclerotic calcification of the coronary arteries. No pericardial thickening or effusion. The heart is enlarged. Lymph nodes: Unremarkable. No enlarged lymph nodes. Bones/joints: Linear fracture to the anterior segment of the right 2nd, 3rd, and 7th right ribs. Linear fractures to the anterior segments of the left 2nd, 3rd, 5th, 6th, and 7th left ribs. No other acute skeletal pathology. Moderate multilevel degenerative changes of the spine, as manifested by multilevel anterior osteophytes and multilevel decrease in intervertebral disc space. Soft tissues: Soft tissue emphysema in the left supraclavicular region, nonspecific. No other acute body wall soft tissue findings are appreciated. Other findings: The visualized intra-abdominal structures demonstrate no acute findings. IMPRESSION: 1. Endotracheal tube at the level of the milka and partially projecting towards the right mainstem bronchus. Consider repositioning. 2. No pulmonary emboli. 3. Diffuse and severe multifocal acute airspace disease, favoring severe COVID-19 pneumonia/ARDS in this patient with a positive history. 4. Near complete atelectasis of the right lower lobe. 5. Complete atelectasis of the left lower lobe. This is likely related to complete mucoid obstruction of the distal left lower lobar bronchus. 6. Moderately sized bilateral layering pleural effusions. 7. Multilevel acute bilateral linear rib fractures, as detailed above. 8. Incidental findings as above.
--- NOTE | 2021-11-03 15:39 | PC.NURSE ---
AT 1125 EDUCATION REPORTER NOTIFIED NURSE THAT PT'S CONTINUOUS PULSE OX WAS SHOWING 76%. NURSE AND RESPIRATORY ENTERED PT'S ROOM. PT HAD REMOVED MITTS AND NON REBREATHER AND WAS AGONAL BREATHING NON REBREATHER WAS REAPPLIED. PT CONTINUED TO DESAT AND HR WAS SHOWING 28 ON TELEMETRY BOX. PT STOPPED BREATHING AND NURSE AND RT WAS UNABLE TO PALPATE A CAROTID PULSE. 1130- CPR INITIATED AND CODE WAS CALLED. ED PHYSICIAN/CLINICAL STAFF ARRIVED AT BEDSIDE. 1133- FIRST DOSE OF EPI GIVEN 1135- PULSE 1140- ED PHYSICIAN INTUBATED 1141- NS IVF BOLUS 1143- 100 MG OF LATASHA PER ED PHYSICIAN VERBAL ORDER 1145- BP 80/54 1149- LEVOPHED INITIATED AND TITRATED 1152- VENT CONNECTED 1153- NEW IV ACCESS LEELEE 1200- PT WAS TRANSPORTED TO 219. 1205- MANUAL BP 73/35 LEFT ARM. 66/28 RIGHT ARM. LEVOPHED TITRATED TO MAX 30 MCG 1214- 94/34 1219- UNABLE TO GET BP. HR IN THE 30'S ON MONITOR 1220- UNABLE TO PALPATE PULSE. 1222- ASYSTOLE ON THE MONITOR. CPR INITIATED. CODE CALLED. EPI GIVEN AT 1223, 1227,1232 AND 1235. CALCIUM GIVEN AT 1224 BICARB GIVEN AT 1225, 1228 AND 1230. PULSE CHECK AT 1228. CONTINUE CPR PULSE CHECK AT 1231. PULSE PULSE CHECK AT 1233. CONTINUE CPR IO IN AT 1235. PULSE CHECK AT 1237. PULSE SINUS VICKY. ED PHYSICIAN NOTIFIED PT'S FAMILY AND FAMILY STATED NOT TO CONTINUE WITH CHEST COMPRESSIONS. 1345- FAMILY ARRIVED. 1400- DIETARY NOTIFIED TO BRING COURTESY CART. PT'S BP HAS IMPROVED WITH LEVOPHED DRIP. NSR WITH HR 50-60'S. O2 SATURATION 100% ON THE VENTILATOR WITH 100% FIO2. REPORT HANDOFF TO VERNON ORTIZ RN.
[2021-11-03 17:21] LABS: Basophils # 0.1 K/mm3 (0-0.2); Basophils % 0.6 % (0.1-2.0); Eosinophils % 0.2 % (0.1-12.0); Hematocrit 39.1 % (37.0-47.0); Hemoglobin 11.7 g/dL (12.2-16.2); Lymphocytes # 0.3 K/mm3 (0.7-4.5); Lymphocytes % 2.6 % (10-50); Mean Corpuscular HGB Conc 29.8 g/dL (31.8-35.4); Mean Corpuscular Hemoglobin 31.6 pg (27.0-31.2); Mean Corpuscular Volume 105.9 fl (81-99); Mean Platelet Volume 9.8 fl (7.4-10.4); Monocytes # 0.5 K/mm3 (0.1-1.0); Monocytes % 5.2 % (1.7-9.3); Neutrophils # 9.6 K/mm3 (1.8-7.8); Neutrophils % 91.5 % (37.0-80.0); Platelet Count 98 K/mm3 (142-424); Red Blood Count 3.69 M/mm3 (4.20-5.40); Red Cell Distribution Width 16.8 % (11.5-17.5); White Blood Count 10.5 K/mm3 (4.8-10.8)
[2021-11-03 17:34] LABS: MANUAL DIFFERENTIAL MANUAL DIFFERENTIAL (MANUAL DIFF)
[2021-11-03 17:41] LABS: Alanine Aminotransferase 58 U/L (12-78); Albumin Level 2.3 g/dl (3.5-5.0); Alkaline Phosphatase 75 U/L (38-126); Anion Gap 10.5 mEq/L (5-15); Aspartate Amino Transferase 109 U/L (14-36); Bilirubin,Total 0.9 mg/dl (0.2-1.3); Blood Urea Nitrogen 51 mg/dl (7-17); Calcium 7.3 mg/dl (8.4-10.2); Carbon Dioxide 25 mmol/L (22.0-30.0); Chloride 110 mmol/L (98-107); Creatinine Clearance Estimated 44 mL/min (50-200); Estimated Glomerular Filt Rate 43 ml/min (>60); GFR (African American) 52 ML/MIN (>60); Globulin 2.4 g/dL (1.3-3.2); Glucose 208 mg/dl (74-100); Magnesium 1.9 mg/dl (1.6-2.3); Potassium 3.5 mmoL/L (3.5-5.1); Sodium 142 mmol/L (136-145); Total Protein,Serum 4.7 g/dl (6.3-8.2)
[2021-11-03 18:01] LABS: Phosphorous 3.6 mg/dl (2.5-4.5)
[2021-11-03 18:53] LABS: Anisocytosis 2+; Lymphocytes % 1 % (10-50); Monocytes % 3 % (2-9); Neutrophils % 96 % (42-76); Platelet Estimate Marked Decrease; RBC Morphology MP; Total Cells Counted 100
[2021-11-03 18:54] LABS: Hypochromasia 2+; Macrocytosis 2+; Schistocytes 1+
[2021-11-03 19:14] LABS: POC Glucose,Bedside 244 (70-110)
--- NOTE | 2021-11-03 20:05 | PC.NURSE ---
since taking over care of pt she has appeared to rest. pupil in left eye is brisk with perrla at 4mm. r pupil has cataract and appears scarred. following return to unit at 1715 from CTA, pt was slightly agitated. pt was easily calmed. levophed when pt was received was running at 8mcg. drip was able to be titrated to 4mcg. pt bp remains labile and fluctuates frequently. contacted Dr Sue at approx 1830 when pt became more agitated and began to pull at ETT. order was received for pt to have fentanyl drip started. was also ordered by Dr Sue to have RT pull tube back by 2cm. notified Dusty Lopez RT. tube now at 20cm at lip as of 190.
--- NOTE | 2021-11-03 20:24 | PC.NURSE ---
off of levo drip at this time r/t limited access and iv was needed for ct scan. drip restarted by 1650
[2021-11-03 20:37] LABS: POC Glucose,Bedside 281 (70-110)
--- NOTE | 2021-11-03 21:31 | P.DN_ITS ---
Pronouncement Note - Date and Time of Date of : 11/03/21 Time of : 21:27 - Additional Data Confirmation of : no pulse, no respirations, no heart sounds, pupils fixed and dilated Family: contacted Attending/PCP notified?: Yes Attending physician: Sumeet Jauregui MD Was code activated?: No Autopsy requested?: No motion picture film examiner notified?: No Organ bank notified?: Yes Advance directives: Yes
--- NOTE | 2021-11-03 21:44 | PC.NURSE ---
was Notified of patient Condition by DHAVAL Webster.
--- NOTE | 2021-11-03 21:46 | PC.NURSE ---
SPOKE WITH GINA HAQ RULE OUT CASE [id number]
[2021-11-04] VITALS: PULSE 110
--- NOTE | 2021-11-04 03:59 | PC.NURSE ---
2135 family notified of change in patients condition, stated they would call back and let staff know if they were coming up 2234 called family to see if they were coming up, family in ER registration, came up to floor, updated on the passing of patient, gave name of home they would be using, did not want to go back to the room
--- NOTE | 2021-11-04 14:21 | [facility].DCSUM ---
General - General Admission date:: 11/01/21 <Sumeet Jauregui - 12/24/21 21:58> 11/01/21 <Falguni Ray - 11/04/21 14:33> Discharge date: 11/03/21 <Falguin Ray - 11/04/21 14:33> HPI HPI: Ms. Keen is an 86-year-old white female who was recently admitted to [facility] from [facility] for rehab following a stroke. She has a history of paroxysmal atrial fibrillation, hypertension, hyperlipidemia, type 2 diabetes mellitus, and atherosclerotic coronary vascular disease. Four days ago she was diagnosed with Covid at [facility] and had been doing fairly well with supplemental oxygen and conservative treatment until last evening when she was found to be more lethargic and hypoxemic. The staff at [facility] was having difficulty maintaining adequate O2 saturation and she was therefore transferred to the emergency room for further evaluation. In the emergency room, her chest x-ray showed diffuse bilateral infiltrates consistent with Covid pneumonia. Her white count was normal. She was also noted to have elevated troponins and subsequently admitted for further evaluation and treatment. Per [facility] documentation, she is known to be DNR status. <Falguni Ray - 11/04/21 14:33> Hospital Course Hospital Course: The patient's chest x-ray showed diffuse patchy airspace opacities throughout the lungs bilaterally. She was admitted and started on supportive care with supplemental oxygen and DuoNeb treatments. An echo was ordered. The patient's daughter spoke with Dr. Jauregui and was not aware of papers being signed at [facility] and wanted her mother changed to a full code. She had a repeat chest x-ray on 11/02/2021 which showed worsening of the bibasilar airspace opacities and increased left pleural effusion. She had increased respiratory distress and required a nonrebreather mask to maintain her oxygen saturations. Cefepime and steroids were added and she was continued on scheduled duo nebs. Her daughter was updated on her condition and wanted her mother to remain a full code. Patient became unable to take p.o. meds and an NG tube was unable to be placed. She was switched to IV pantoprazole and placed on Nitropaste instead of isosorbide. Lovenox was ordered on the left that apixaban. Her echo returned showing an EF of 55% and a right ventricular systolic pressure 50 mmHg. An NG tube was finally inserted but the patient pulled it out. She was continued on Covid protocol. She eventually had cardiopulmonary arrest on the morning of 11/03/2021 and required intubation and mechanical ventilatory support. Pulmonology was consulted for management. Repeat chest x-ray showed a right-sided diffuse airspace disease with interstitial edema. A CTA was ordered due to her recent history of TIA, bedrest, and Covid pneumonia to determine the etiology of her PEA arrest. She had to be started on a Levophed drip as she was hemodynamically unstable. Her chest CTA showed no pulmonary emboli but did show diffuse and severe multifocal acute airspace disease favoring severe COVID-19 pneumonia/Arns. There was complete atelectasis of the left lower lobe likely related to mucoid obstruction of the distal left lower bronchus. Her condition was case discussed with her daughter and she did not want to resume CPR if her pulse was lost again. Patient once again lost pulse and respirations on 11/03/2021 at 21:27. Dr. Menendez was called to pronounce the patient. <Falguni Ray - 11/04/21 14:33> Objective Vital signs: Temp Pulse Resp BP Pulse Ox 97.7 F 110 H 20 125/38 L 100 11/03/21 20:00 11/04/21 00:00 11/03/21 21:00 11/03/21 21:00 11/03/21 21:00 <Sumeet Jauregui - 12/24/21 21:58> Temp Pulse Resp BP Pulse Ox 97.7 F 110 H 20 125/38 L 100 11/03/21 20:00 11/04/21 00:00 11/03/21 21:00 11/03/21 21:00 11/03/21 21:00 <Falguni Ray - 11/04/21 14:33> Narrative: - Constitutional no acute
== END 2021-11-04 01:06 | disposition expired | DRG 208 ==
LOC: ER 11-01 02:01 → 2ND 11-01 02:31
PROVIDERS: Internal Medicine Pulmonary Disease; Admitting Provider Family Medicine; Emergency Provider Emergency Medicine; PCP Family Medicine; Visit Provider Family Medicine
DX: U07.1 COVID-19 (principal); I21.4 Non-ST elevation (NSTEMI) myocardial infarction; J12.82 Pneumonia due to coronavirus disease 2019; I50.33 Acute on chronic diastolic (congestive) heart failure; J96.01 Acute respiratory failure with hypoxia; I48.0 Paroxysmal atrial fibrillation; E03.9 Hypothyroidism, unspecified; E11.9 Type 2 diabetes mellitus without complications; Z79.01 Long term (current) use of anticoagulants; Z79.4 Long term (current) use of insulin; Z95.5 Presence of coronary angioplasty implant and graft; I65.29 Occlusion and stenosis of unspecified carotid artery; I25.10 Atherosclerotic heart disease of native coronary artery without angina pectoris; Z86.73 Personal history of transient ischemic attack (TIA), and cerebral infarction without residual deficits; I11.0 Hypertensive heart disease with heart failure; E66.9 Obesity, unspecified; Z68.34 Body mass index [BMI] 34.0-34.9, adult
CPT/HCPCS: 31500; 94002; 36415; 71045; 71275; 80048; 80053; 80061; 81001; 82803; 82962; 83605; 83735; 83880; 84100; 84145; 84484; 85007; 85025; 85651; 86140; 87070; 87077; 87186; 87205; 93005; 93306; 94640; 94760; 96365; 96375; 99285; C9803; J0692; Q9967; U0003; U0005